=== PATIENT | female | born 1995 | race Caucasian/White ===

== ENCOUNTER 2021-01-02 14:28 | Outpatient (CLI) | payer OTHER, SELFPAY ==
[2021-01-02] VITALS (8 sets, daily range): BP systolic 123–136; BP diastolic 66–77; PULSE 89–102; TEMP 36.9
[2021-01-02 15:30] LABS: Basophils Percent Auto 0.3 % (0.2-1.2); Eosinophils Absolute Auto 0.1 K/mm3 (0-0.3); Eosinophils Percent Auto 0.6 % (0-4.4); Hematocrit 29.8 % (37.0-47.0); Hemoglobin 9.2 g/dL (12.0-15.0); Immature Granulocyte Absolute 0.11 K/mm3 (0.00-0.031); Lymphocytes Absolute Auto 1.56 K/mm3 (0.9-3.2); Lymphocytes Percent Auto 14.4 % (18.3-44.2); Mean Corpuscular HGB Conc 30.9 g/dl (32-36); Mean Corpuscular Hemoglobin 23.4 pg (26-34); Mean Corpuscular Volume 75.8 fl (80-100); Mean Platelet Volume 11.4 fl (7.4-10.4); Monocytes Absolute Auto 0.9 K/mm3 (0.1-0.6); Monocytes Percent Auto 7.9 % (2.6-8.5); Neutrophils Absolute Auto 8.2 K/mm3 (1.3-6.7); Neutrophils Percent Auto 75.8 % (45.5-73.1); Platelet Count Result 225 k/mm3 (150-375); Red Blood Count 3.93 M/mm3 (4.2-5.4); White Blood Count 10.8 K/mm3 (4.5-10.0)
[2021-01-02 15:40] LABS: Add Urine Microscopic? YES; Amorphous Sediment Urine Few; Appearance Urine Cloudy (Clear); Bacteria Urine Trace /hpf; Bilirubin Urine Negative (Negative); Blood Urine Negative (Negative); Color Urine Yellow (Yellow); Glucose Urine UA Negative (Negative); Ketones Urine Negative (Negative); Leukocyte Esterase Ur Negative LEU/UL (NEGATIVE); Mucus Urine Rare /lpf; Nitrate Urine Negative (Negative); Protein Urine 1+ mg/dL (Negative); RBC Urine 0-2 /hpf (0-2); Specific Grav Ur 1.024 (1.001-1.035); Squamous Epithelial Cell Urine Many /hpf (Few); WBC Urine 0-3 /hpf (0-3)
[2021-01-02 15:42] LABS: Alanine Aminotransferase 13 U/L (4-35); Albumin Level 3.1 g/dL (3.5-5.1); Alkaline Phosphatase 91 U/L (38-126); Anion Gap 3 mmol/L (8-16); Aspartate Amino Transferase 19 U/L (14-36); Bilirubin,Total 0.2 mg/dL (0.2-1.3); Blood Urea Nitrogen 6 mg/dL (7-17); Carbon Dioxide 23 mmol/L (22-30); Chloride 107 mmol/L (98-107); Estimated Glomerular Filt Rate > 60; Glucose 114 mg/dL (65-105); Potassium 3.8 mmol/L (3.4-5.0); Sodium 133 mmol/L (137-145); Uric Acid 3.5 mg/dL (2.5-7.5)
[2021-01-02 16:15] LABS: Total Protein Urine Random 6 mg/dL
[2021-01-02 16:17] LABS: Creatinine Urine 138.7 mg/dL; Ur Ttl Prot Creatinine Ratio 0.04 mg/mg (0-0.20)
--- NOTE | 2021-01-02 16:23 | PC.NURSE ---
Dr. Matthews updated on patient BPs and lab results. Orders to discharge patient to home and patient to follow-up as scheduled.
--- NOTE | 2021-01-02 16:24 | PC.NURSE ---
HIP precautions reviewed with patient prior to patient leaving. Patient states understanding.
== END 2021-01-02 16:26 | disposition home or self-care (01) ==
LOC: ANHOBOP 14:37 → ANHOBPP 14:37
PROVIDERS: Visit Provider Obstetrics & Gynecology
DX: O13.9 Gestational [pregnancy-induced] hypertension without significant proteinuria, unspecified trimester (principal); Z3A.00 Weeks of gestation of pregnancy not specified
CPT/HCPCS: 36415; 59025; 80053; 81001; 82570; 84156; 84550; 85025; 87077; 87086; 87088; 99199

== ENCOUNTER 2021-01-09 14:52 | Inpatient (IN) | payer OTHER, SELFPAY ==
[2021-01-09] VITALS (106 sets, daily range): BP systolic 96–145; BP diastolic 55–120; PULSE 79–163; TEMP 36.6–36.8; O2SAT 98–100; BMI 29.7
--- NOTE | 2021-01-09 15:21 | LDADM ---
This patient, Antonina Devi, was admitted to Labor/Delivery/Recovery 105 on 01/09/21 at 14:52. Plans for labor, pain management and were discussed with patient. Patient/family oriented to hospital policies and general routines including ID bracelet, bed and alarms, visiting hours, pain management, procedures, bathroom and other care routines, personal items, smoking policy, room service/diet and guest tray routines, security routines, and visiting hours. Patient/Family are encouraged to report perceived risks to care and to ask questions if they do not understand what they are told or what they should do. See OBIX for further documentation.
[2021-01-09 15:55] LABS: Basophils Absolute Auto 0.1 K/mm3 (0.0-0.1); Basophils Percent Auto 0.5 % (0.2-1.2); Eosinophils Absolute Auto 0.1 K/mm3 (0-0.3); Eosinophils Percent Auto 0.6 % (0-4.4); Hematocrit 32.6 % (37.0-47.0); Hemoglobin 9.9 g/dL (12.0-15.0); Immature Granulocyte Absolute 0.19 K/mm3 (0.00-0.031); Immature Granulocyte Percent A 1.5 % (0-0.5); Lymphocytes Absolute Auto 1.73 K/mm3 (0.9-3.2); Lymphocytes Percent Auto 13.9 % (18.3-44.2); Mean Corpuscular HGB Conc 30.4 g/dl (32-36); Mean Corpuscular Hemoglobin 23.1 pg (26-34); Mean Platelet Volume 11.8 fl (7.4-10.4); Monocytes Absolute Auto 0.9 K/mm3 (0.1-0.6); Monocytes Percent Auto 6.8 % (2.6-8.5); Neutrophils Absolute Auto 9.5 K/mm3 (1.3-6.7); Neutrophils Percent Auto 76.7 % (45.5-73.1); Nucleated Red Blood Cells Perc 0.2 % (0.0-0.2); Platelet Count Result 204 k/mm3 (150-375); Red Blood Count 4.29 M/mm3 (4.2-5.4); Red Cell Distribution Width 15.8 % (11.5-14.5); White Blood Count 12.4 K/mm3 (4.5-10.0)
[2021-01-09] MEDS: AMPICILLIN 2 GM/NS 100 ML 2 GM/100 ML BAG IVPB (16:00)
[2021-01-09] MEDS: OXYTOCIN 30 UNITS/NS 500 ML 30 UNITS/500 ML BAG IV CONT (16:00)
[2021-01-09] MEDS: LACTATED RINGERS 1,000 ML 125 ML IV CONT ×3 (16:00→21:57)
[2021-01-09 16:10] LABS: Uric Acid 3.1 mg/dL (2.5-7.5)
[2021-01-09 16:11] LABS: Alanine Aminotransferase 11 U/L (4-35); Albumin Level 3.3 g/dL (3.5-5.1); Alkaline Phosphatase 104 U/L (38-126); Anion Gap 5 mmol/L (8-16); Aspartate Amino Transferase 21 U/L (14-36); Bilirubin,Total 0.1 mg/dL (0.2-1.3); Blood Urea Nitrogen 10 mg/dL (7-17); Carbon Dioxide 20 mmol/L (22-30); Chloride 108 mmol/L (98-107); Estimated CRCL calculation 173 ml/min; Estimated Glomerular Filt Rate > 60; Glucose 93 mg/dL (65-105); Potassium 3.9 mmol/L (3.4-5.0); Sodium 133 mmol/L (137-145)
[2021-01-09 16:35] LABS: Amphetamine Screen Urine Negative (Negative); Barbiturate Screen Urine Negative (Negative); Benzodiazepines Screen Urine Negative (Negative); Cannabinoid Screen Urine Negative (Negative); Cocaine Screen Urine Negative (Negative); Methadone Screen Urine Negative (Negative); Opiate Screen Urine Negative (Negative); Phencyclidine Screen Urine Negative (Negative)
--- NOTE | 2021-01-09 17:52 | P.HP_ITS ---
Obstetrics - Admit Note Admission Note: record reviewed. No pertinent additions to the history and/or any subsequent changes in the physical findings that are not consistent with the expected course of the were found. Admit for GHTN at [address] Matthews. Bp's normotensive and denies symptoms, sve 2/50/-2, AROM mode rate amount of clear odorless fluid Additions to the history and/or subsequent changes in the physical findings follow. None.
[2021-01-09] MEDS: AMPICILLIN 1 GM/NS 50 ML 1 GM/50 ML BAG IVPB (20:22)
[2021-01-09] MEDS: LORATADINE 10 MG TABLET PO (20:43)
[2021-01-10] VITALS (23 sets, daily range): BP systolic 111–142; BP diastolic 59–95; PULSE 64–116; RESP 16–20; TEMP 36.7–37.2; O2SAT 99–100
--- NOTE | 2021-01-10 00:30 | PM.OBPRVD ---
OB - Delivery Note Procedure Delivery date: 01/10/21 Procedure: vaginal delivery events: Induced HTN Intrapartal events: None Induction method: AROM and per pitocin protocol Delivery monitor: external FHT Laceration Description: None Specimen: Yes Quantitative Blood Loss (ml): 98 Anesthesia type: Epidural Disposition: other Baby Date of : 01/10/21 Time of : 00:17 Weeks of gestation at delivery: 37 gender: Female Weight (pounds): 6 Weight (ounces): 10 presentation: compound (hand and anterior arm with head) position: Left Occiput Anterior Placenta delivery description: Spontaneous cord vessel description: 3 Vessels, Nuchal Cord, Clamped/Cut and Delayed Cord Clamping score one minute: 8 score five minutes: 9 Narrative: mother and baby skin to skin in stable condition
--- NOTE | 2021-01-10 01:00 | PC.NURSE ---
rn discussed plan of care w nora gandhi cnm. pp assessments reviewed w cnm and orders received to hold 2nd bag of oxytocin at this time. rn may administer 2nd bag of oxytocin if pt uterus is no longer firm or pt bleeding increases.
[2021-01-10] MEDS: diphenhydrAMINE HCl INJ 50 MG/ML VIAL 12.5 MG IV PUSH ×2 (02:05→02:35)
[2021-01-10] MEDS: IBUPROFEN 600 MG TABLET PO ×3 (05:23→20:23)
--- NOTE | 2021-01-10 07:58 | PM.OBPNVD ---
OB - PN: Subj Subjective Date/time seen: 01/10/21 07:58 Patient comments: no complaints baby status: doing well OB - PN: Obj Data Labs CBC & Chem 7: 01/09/21 15:18 01/09/21 15:18 Labs: Laboratory Results - last 24 hr 01/09/21 01/09/21 01/09/21 15:18 15:18 15:18 WBC 12.4 H RBC 4.29 Hgb 9.9 L Hct 32.6 L MCV 76.0 L MCH 23.1 L MCHC 30.4 L RDW 15.8 H Plt Count 204 MPV 11.8 H Immature Gran % (Auto) 1.5 H Neut % (Auto) 76.7 H Lymph % (Auto) 13.9 L [place] % (Auto) 6.8 Eos % (Auto) 0.6 Baso % (Auto) 0.5 Lymph # (Auto) 1.73 [place] # (Auto) 0.9 H Eos # (Auto) 0.1 Baso # (Auto) 0.1 Abs Immat Gran (auto) 0.19 H Absolute Neuts (auto) 9.5 H Absolute Nucleated RBC 0.0 Nucleated RBC % 0.2 Sodium Potassium Chloride Carbon Dioxide Anion Gap BUN Creatinine Estim Creat Clear Calc Estimated GFR Glucose Uric Acid 3.1 Calcium Total Bilirubin AST ALT Alkaline Phosphatase Total Protein Albumin Urine Opiates Screen Urine Methadone Screen Ur Barbiturates Screen Ur Phencyclidine Scrn Ur Amphetamine Screen U Benzodiazepines Scrn Urine Cocaine Screen U Cannabinoids Screen Blood Type O Positive Antibody Screen Negative 01/09/21 01/09/21 15:18 15:18 WBC RBC Hgb Hct MCV MCH MCHC RDW Plt Count MPV Immature Gran % (Auto) Neut % (Auto) Lymph % (Auto) [place] % (Auto) Eos % (Auto) Baso % (Auto) Lymph # (Auto) [place] # (Auto) Eos # (Auto) Baso # (Auto) Abs Immat Gran (auto) Absolute Neuts (auto) Absolute Nucleated RBC Nucleated RBC % Sodium 133 L Potassium 3.9 Chloride 108 H Carbon Dioxide 20 L Anion Gap 5 L BUN 10 Creatinine 0.40 L Estim Creat Clear Calc 173 Estimated GFR > 60 Glucose 93 Uric Acid Calcium 9.0 Total Bilirubin 0.1 L AST 21 ALT 11 Alkaline Phosphatase 104 Total Protein 7.0 Albumin 3.3 L Urine Opiates Screen Negative Urine Methadone Screen Negative Ur Barbiturates Screen Negative Ur Phencyclidine Scrn Negative Ur Amphetamine Screen Negative U Benzodiazepines Scrn Negative Urine Cocaine Screen Negative U Cannabinoids Screen Negative Blood Type Antibody Screen OB - PN A/P Plan day: 1 Plan: routine care Time Spent With Patient Time: Total time spent is greater than 50% in coordination of care (as documented) at patient's floor/unit and/or counseling patient: Time with patient: less than 15 minutes Review of Systems Review of Systems: All systems reviewed & are unremarkable except as noted in HPI and below Exam Narrative: Exam Narrative: Fundus firm and vaginal flow controlled. No lower ext redness, warmth, or edema. Negative homans. Const: General: comfortable Chest: Breast/axilla inspection: normal inspection of the breasts Resp: Effort & Inspection: normal respiratory effort Cardio: Rate: regular rate GI: GI Palp: Yes Soft to palpation Psych: Appearance: grossly normal Affect: normal affect Attitude: cooperative Thought content: Yes Normal thought content present Judgement: Good judgement present (Psych)
--- NOTE | 2021-01-10 08:15 | PC.NURSE ---
Mother called out for assist with feeding. Consulted with patient, mother reports has fed well first feeding. Infant has been sleepy since. Mother has made a few attempts without success. Reviewed feeding cues, frequencies, duration of feedings, feeding elimination flow sheet, and signs of adequate intake. Demonstrated stimulation techniques to wake for feeding. Assisted with infant to breast. Reviewed positioning/alignment in cross cradle, holding breast in U hold and guided asymmetrical latch on. was able to latch within a few attempts. Infant nursed sleepily, with weak draws for short bursts followed with long pausing. Attempt for 15 minutes. Infant will be supplemented due to 6 hours from last feeding.
--- NOTE | 2021-01-10 11:45 | PC.NURSE ---
Mother is independently attempting to breast. remains sleepy and not waking for feeding. Demonstrated stimulation techniques to wake infant for feeding. Assisted with to breast. Reviewed positioning/alignment in cross cradle, holding breast in U hold and guided asymmetrical latch on. was able to latch within a few attempts. nursed eagerly, with steady draws and frequent swallowing noted for short bursts followed with long pausing. Advised to stimulate to keep infant awake and nursing effectively for increased intake, increased stimulation and to assist with maintaining deep latch. Reviewed signs of a correct latch, effective nursing and suck swallow ratio. Infant was able to maintain latch. Mother working well to stimulate to keep infant nursing.
[2021-01-10] MEDS: DOCUSATE SODIUM 100 MG CAPSULE PO (15:56)
[2021-01-10] MEDS: ACETAMINOPHEN 325 MG TABLET 650 MG PO (15:56)
[2021-01-10] MEDS: POLYSACCHARIDE IRON COMPLEX 150 MG CAPSULE PO (15:57)
[2021-01-11] MEDS: IBUPROFEN 600 MG TABLET PO (02:45)
[2021-01-11 03:22] LABS: Hematocrit 33.7 % (37.0-47.0); Hemoglobin 10.2 g/dL (12.0-15.0)
[2021-01-11 07:01] LABS: Rapid Plasma Reagin Non-Reactive (NonReactive)
[2021-01-11] MEDS: TETANUS,DIPHTHERIA,AC PERTUSSIS ADULT (0.5 ML) BOOSTRIX IM (07:07)
[2021-01-11] MEDS: DOCUSATE SODIUM 100 MG CAPSULE PO (07:09)
[2021-01-11] MEDS: MULTIVIT/MIN/PREN/FOL AC/IRON TABLET 1 TAB PO (07:10)
[2021-01-11] MEDS: LANOLIN (LANSINOH) 7.5 GM CREAM 1 APPLIC TOPICAL (07:10)
[2021-01-11 07:30] VITALS: BP 121/70; PULSE 77; RESP 18; TEMP 36.4
--- NOTE | 2021-01-11 07:39 | PM.OBPNVD ---
OB - PN: Subj Subjective Date/time seen: 01/11/21 07:39 Patient comments: no complaints baby status: doing well [place] feeding status: breast and bottle feeding OB - PN: Obj Data Labs CBC & Chem 7: 01/11/21 02:45 01/09/21 15:18 Labs: Laboratory Results - last 24 hr 01/09/21 01/11/21 15:18 02:45 Hgb 10.2 L Hct 33.7 L RPR Non-reactive OB - PN A/P Plan day: 1 Plan: routine care and discharge home Time Spent With Patient Time: Total time spent is greater than 50% in coordination of care (as documented) at patient's floor/unit and/or counseling patient: Review of Systems Review of Systems: All systems reviewed & are unremarkable except as noted in HPI and below Exam Const: General: cooperative Nutritional Appearance: average body habitus Orientation/consciousness: patient oriented x3 Psych: Attitude: cooperative Thought process: Normal thought process present Thought content: Yes Normal thought content present Insight: Good insight present (Psych) Judgement: Good judgement present (Psych)
--- NOTE | 2021-01-11 07:41 | PM.OBDSVD ---
DS: Admitting Diagnosis Admitting Diagnosis Admitting Diagnosis: HTN OB - DS: Summary OB Procedures : None OB Procedures Intrapartum: Spontaneous Vag Delivery OB Procedures: : None Time Spent with Patient Time attestation: Total time spent providing and/or coordinating discharge services: DS: Data Data Completed and Pending Pending studies at discharge: Pending at discharge 01/10/21 00:37 Surgical [PTH] Routine Labs on day of discharge: Labs from last 24 hours 01/11/21 01/09/21 02:45 15:18 Hgb 10.2 L Hct 33.7 L RPR Non-reactive Discharge Plan Discharge Attending physician on discharge: Brandy Ahmadi Discharging Clinician: Jessica Preciado Patient Disposition: Home, Self-Care Activity: pelvic rest Diet: regular Patient Instructions: Antibiotic Form Stand Alone Forms: General Discharge Information Follow-up/Referrals: Jessica Preciado, CNM [Certified Nurse [employer]] - 4 Weeks Discharge Medications: Continued PNV [id number] fumarate-FA [] 28 mg iron- 800 mcg Tablet 1 tablet PO DAILY RF: 0 Discontinued ferrous sulfate 325 mg (65 mg iron) Tablet 325 mg PO DAILY RF: 0 Date of admission: 01/09/21 14:52 Primary Care Provider: PHYSICIAN,[employer] ASSOCIATE Admitting Provider: Brandy Ahmadi Attending physician on admission: Brandy Ahmadi Condition: Stable
--- NOTE | 2021-01-11 10:37 | WPDANLDPN2 ---
Anes-Prog Note L&D Date/Time: 01/11/21 10:37 Comfortable throughout: labor and delivery Neuraxial method: epidural Epidural/Spinal procedure site: clean & non-tender Neuro status: Neuro function grossly intact. Cardiovascular status: normal Respiratory status: normal Airway patency: baseline Mental status: baseline Post-Op hydration status: normal Vital Signs: Last Vital Signs Temp 36.4 C 01/11/21 07:30 Pulse 77 01/11/21 07:30 Resp 18 01/11/21 07:30 BP 121/70 01/11/21 07:30 Pulse Ox 100 01/10/21 16:50 Pain score (VAS): 3 Post-procedural complaints: none Patient feedback: Patient satisfied with anesthetic care.
--- NOTE | 2021-01-11 10:45 | PC.NURSE ---
consult with pt., mother reports infant began eagerly latching during the late evening and continues to wake for feedings. Observed mother is able to independently latch infant with appropriate positioning/alignment. nurses eagerly with long rhythmic draws and freq swallowing noted. Mother will independently stimulate infant to keep nursing effectively. She denies any nipple discomfort, is feeding as required and waking to feed if needed. is currently meeting outcomes for weight, output, jaundice and feeding frequencies. Mother states she feels confident to continue effective at home. Reviewed transition to breast milk, signs of adequate intake, and engorgement/relief. Instructed to call ICP if intake/output less than required. Reviewed regular medications mother is taking. Information provided per Rachael. Reviewed community resources on the [facility] website and in the Mom/Baby guide. Information on outpatient services provided. Mother has no further questions at this time.
--- NOTE | 2021-01-11 11:42 | PC.NURSE ---
Patient viewed the discharge video Mother & Baby Care, The First Two Weeks . Patient was given the opportunity and encouraged to ask questions. Patient verbalized understanding of information shared and has been given the mother/baby guide for home reference.
[2021-01-12 08:45] VITALS: BP 122/87; PULSE 81; RESP 16; TEMP 37; O2SAT 100
== END 2021-01-11 12:42 | disposition home or self-care (01) | DRG 560 ==
LOC: ANHLDR 01-10 00:34 → ANHOB2 01-10 03:17
PROVIDERS: Advanced Practice Midwife; Admitting Provider Obstetrics & Gynecology; Visit Provider Obstetrics & Gynecology
DX: O14.94 Unspecified pre-eclampsia, complicating childbirth (principal); Z37.0 Single live birth; Z3A.37 37 weeks gestation of pregnancy; O99.824 Streptococcus B carrier state complicating childbirth; O69.81X0 Labor and delivery complicated by cord around neck, without compression, not applicable or unspecified; O62.3 Precipitate labor
CPT/HCPCS: 36415; 80053; 80307; 84550; 85014; 85018; 85025; 86592; 86850; 86900; 86901; 88307; 90715; A9270; J0290; J1200; J2590; J2795; J7120